=== PATIENT | female | born 1975 | race Caucasian/White ===

== ENCOUNTER 2022-03-31 20:16 | Outpatient (CLI) | payer OTHER | END 2022-03-31 20:17 | disposition critical access hospital (66) | LOC: EMS 20:16 | DX: R09.89 Other specified symptoms and signs involving the circulatory and respiratory systems (principal); R11.10 Vomiting, unspecified | CPT/HCPCS: A0425; A0429 ==

== ENCOUNTER 2022-03-31 20:55 | Day surgery (SDC) | payer OTHER ==
[2022-03-31] MEDS ORDERED: GLUCAGON 1 MG/ML VIAL IVP STA ×2 (21:04→22:02)
--- NOTE | 2022-03-31 21:05 | ED Physician Documentation ---
History of Present Illness - Stated complaint Stated Complaint: FOOD BOLUS - Chief complaint Chief Complaint: Heent - History obtained from History obtained from: Patient, EMS - Additonal information Additional information: She has a history of gastric sleeve, has had an esophageal food bolus once, but it self resolved. Eating efrain robertos tonight and initially felt like it was stuck high in the chest now low in the chest and cannot tolerate her secretions but phonation is normal. PD PAST MEDICAL HISTORY - Present Medications Home Medications: Ambulatory Orders Medication Instructions Recorded Confirmed Levothyroxine Sodium 125 mcg PO DAILY 10/09/21 03/31/22 [Levothyroxine] - Allergies Allergies/Adverse Reactions: Allergies Allergy/AdvReac Type Severity Reaction Status Date / Time amoxicillin Allergy Hives Verified 10/09/21 19:37 PD ED PE NORMAL - Vitals Vital signs reviewed: Yes - General General: Alert and oriented X 3, Other (Holding a vomit bag) - Cardiac Cardiac: RRR, No murmur - Respiratory Respiratory: No respiratory distress, Clear bilaterally - Abdomen Abdomen: Non tender - Neuro Neuro: Alert and oriented X 3, Normal speech Results - Vitals Vitals: Vital Signs - 24 hr 03/31/22 03/31/22 03/31/22 20:59 21:04 21:32 Temperature 36.9 C Heart Rate 91 87 84 Respiratory 18 18 18 Rate Blood Pressure 137/90 H 142/77 H 127/74 O2 Saturation 98 99 100 03/31/22 22:13 Temperature Heart Rate 83 Respiratory 18 Rate Blood Pressure 136/62 H O2 Saturation 99 Oxygen O2 Source Room air PD Medical Decision Making - ED course ED course: 47-year-old woman with esophageal food impaction. Given glucagon, then nitroglycerin, then repeated glucagon without relief and still unable to handle her secretions and I spoke with Dr. Pascual who will take her to the OR for EGD. Departure - Departure Disposition: ED Transfer to [facility] Clinical Impression: Esophageal obstruction due to food impaction Condition: Stable
[2022-03-31] MEDS ORDERED: NITROGLYCERIN SL 0.4 MG TABLET SL STA (21:25)
--- NOTE | 2022-03-31 23:11 | ANESTHESIA ---
Pre-Anesthesia VS, & Labs - Diagnosis food bolus - Procedure egd, food bolus removal Vital Signs: Temp Pulse Resp BP Pulse Ox O2 Flow Rate 36.9 C 83 18 136/62 H 99 03/31/22 20:59 03/31/22 22:13 03/31/22 22:13 03/31/22 22:13 03/31/22 22:13 Height: 5 ft 8 in Weight (kg): 124.738 kg Body Mass Index: 41.8 BMI Classification: Morbidly Obese - NPO >8 hours - Is Patient ?: No - Lab Results Lab results reviewed: No Home Medications and Allergies Levothyroxine Sodium [Levothyroxine] 125 mcg PO DAILY 10/09/21 Allergies/Adverse Reactions: Allergies Allergy/AdvReac Type Severity Reaction Status Date / Time amoxicillin Allergy Hives Verified 10/09/21 19:37 Anes History & Medical History - Anesthetic History Anesthesia Complications: reports: No previous complications Family history of Anesthesia Complications: Denies Family history of Malignant Hyperthermia: Denies - Medical History Pulmonary: reports: Asthma Gastrointestinal: reports: GERD - Surgical History General: reports: Cholecystectomy, Gastric surgery Gynecologic: reports: Hysterectomy Exam General: Alert, Oriented x3, Cooperative Dental: WNL Mouth Openin Fingerbreadth Neck Mobility: Normal Mallampati classification: III Thyromental Distance: 4-6 cm Respiratory: Lungs clear, Normal breath sounds, No respiratory distress, Other (gagging, coughing) Cardiovascular: Regular rate Neurological: Normal speech Mental/Cognitive Status: Alert/Oriented X3, Normal for patient Cognitive Status: Within normal limits Plan Anesthesia Type: General Consent for Procedure(s) Verified and Reviewed: Yes Code Status: Attempt Resuscitation ASA classification: 2-Mild systemic disease Is this case an emergency?: Yes
--- NOTE | 2022-03-31 23:13 | HISTORY & PHYSICAL EXAMINATION ---
History and Physical - History and Physical See paper H&P in chart. Impacted food bolus for 4 hours. Unable to tolerate secretions. Discussed r/b/a with patient in ED. Consent signed. Plan for emergent EGD with food bolus removal. Discharge tonight or in AM. f/u prn.
[2022-03-31] MEDS ORDERED: LACTATED RINGERS 400 ML IV ONE (23:40)
[2022-03-31] MEDS ORDERED: LACTATED RINGERS 1,000 ML IV SCH (23:45)
[2022-03-31] MEDS ORDERED: NALOXONE 0.4 MG/ML VIAL IVP PRN (23:47)
[2022-03-31] MEDS ORDERED: ATROPINE ABBOJECT 1 MG/10 ML SYRINGE IVP PRN (23:47)
[2022-03-31] MEDS ORDERED: fentaNYL 100 MCG/2 ML VIAL IVP PRN (23:47)
[2022-03-31] MEDS ORDERED: METOCLOPRAMIDE 10 MG/2 ML VIAL IVP PRN (23:47)
[2022-03-31] MEDS ORDERED: ePHEDrine 50 MG/ML VIAL IVP PRN (23:47)
[2022-03-31] MEDS ORDERED: HYDROmorphone 0.5 MG/0.5 ML SYRINGE IVP PRN (23:47)
[2022-03-31] MEDS ORDERED: MORPHINE 2 MG/ML CARPUJECT IVP PRN (23:47)
[2022-03-31] MEDS ORDERED: ONDANSETRON 4 MG/2 ML VIAL IVP PRN (23:47)
--- NOTE | 2022-03-31 23:56 | ANESTHESIA POST OP EVALUATION ---
Anesthesia Post Eval - Post Anesthesia Eval Vitals: Last Vital Signs Temp 36.2 C L 03/31/22 23:39 Pulse 111 H 03/31/22 23:39 Resp 20 03/31/22 23:39 BP 148/82 H 03/31/22 23:39 Pulse Ox 99 03/31/22 23:39 O2 Flow Rate CV Function Including HR & BP: Stable Pain Control: Satisfactory Nausea & Vomiting: Negative Mental Status: Baseline Respiratory Status: Airway Patent, Other (cough treated with cetacaine) Hydration Status: Satisfactory Anesthesia Complications: None - Other Details/Therapies Other Details/Therapies: up to bathroom for void
[2022-04-01 00:49] VITALS: BP 120/68
== END 2022-03-31 23:34 | disposition home or self-care (01) ==
LOC: EDUNIT# → ED 20:55 → SDS 23:33
PROVIDERS: ATTEND Surgery
DX: T18.128A Food in esophagus causing other injury, initial encounter (principal); E66.01 Morbid (severe) obesity due to excess calories; J45.909 Unspecified asthma, uncomplicated; Z68.41 Body mass index [BMI] 40.0-44.9, adult
CPT/HCPCS: 43247; 87635; 96374; 96376; 99284; 99285; A9270; J7120